=== PATIENT | female | born 1985 | race Native Hawaiian/Other Pacific Islander ===

== ENCOUNTER 2018-03-29 08:20 | Outpatient (CLI) | payer OTHER | END 2018-03-29 22:08 | disposition home or self-care (01) | LOC: US 08:20 | DX: E04.0 Nontoxic diffuse goiter (principal) ==

== ENCOUNTER 2018-11-17 09:00 | Outpatient (CLI) | payer OTHER | END 2018-11-17 20:15 | disposition home or self-care (01) | LOC: US 09:00 | DX: E04.2 Nontoxic multinodular goiter (principal) ==

== ENCOUNTER 2019-11-06 11:28 | Outpatient (CLI) | payer OTHER ==
[2019-11-06 12:33] LABS: POTASSIUM 4.3 mmol/L (3.6-5.2)
== END 2019-11-06 20:03 | disposition home or self-care (01) ==
LOC: LABW 11:28
DX: E55.9 Vitamin D deficiency, unspecified (principal); E06.3 Autoimmune thyroiditis; E04.2 Nontoxic multinodular goiter
CPT/HCPCS: 36415; 80053; 82306; 84439; 84443

== ENCOUNTER 2022-08-20 07:59 | Outpatient (CLI) | payer OTHER | END 2022-08-20 19:03 | disposition home or self-care (01) | LOC: US 07:59 | PROVIDERS: ATTEND Nurse Practitioner Family | DX: E03.8 Other specified hypothyroidism (principal) ==

== ENCOUNTER 2022-11-24 07:48 | Outpatient (CLI) | payer OTHER | END 2022-11-24 20:20 | disposition home or self-care (01) | LOC: LABW 07:48 | PROVIDERS: ATTEND Nurse Practitioner | DX: E06.3 Autoimmune thyroiditis (principal) | CPT/HCPCS: 36415; 84439; 84443 ==

== ENCOUNTER 2023-05-17 09:11 | Outpatient (CLI) | payer OTHER | END 2023-05-17 19:38 | disposition home or self-care (01) | LOC: US 09:11 | PROVIDERS: ATTEND Nurse Practitioner | DX: E04.2 Nontoxic multinodular goiter (principal) ==